=== PATIENT | male | born 1995 | race Caucasian/White ===

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

== ENCOUNTER 2017-08-24 14:06 | Emergency (ER) | payer OTHER ==
[~2017-08-24] VITALS: Ht 175.3 cm; Wt 68.0 kg
[2017-08-24] MEDS ORDERED: HYDROcodone/APAP 5 MG/325 MG (LORTAB) TAB PO STA (14:10)
--- NOTE | 2017-08-24 14:26 | ED Upper Extremity ---
General Chief Complaint: Upper Extremity Stated Complaint: LEFT HAND FINGERS SMASHED AT WORK Nursing Triage Note: PT STATES SMASHED 2,3,4,5 FINGERS ON L HAND BETWEEN TWO RAILROAD TIES AT WORK Nursing Sepsis Screen: No Definite Risk Source: patient, spouse Exam Limitations: no limitations History of Present Illness Time seen by provider: 14:14 Allergies and Home Medications Allergies Coded Allergies: No Known Drug Allergies (Unverified , 12/17/16) Past Fmqtali-Wdnchg-Dizveg Hx Patient Social History Alcohol Use: Occasionally Uses Number of Drinks Today: AA Alcohol Beverage of Choice: Beer Recreational Drug Use: No Smoking Status: Current Someday Smoker Type Used: Cigarettes Recent Foreign Travel: No Contact w/Someone Who Travel: No Recent Infectious Disease Expo: No Recent Hopitalizations: No Physical Abuse: No Sexual Abuse: No Immunizations Up To Date Tetanus Booster (TDap): Less than 5yrs Seasonal Allergies Seasonal Allergies: Yes Surgeries History of Surgeries: Yes (LT WRIST SURG X2, nasal fx) Respiratory History of Respiratory Disorde: No Cardiovascular History of Cardiac Disorders: No Neurological History of Neurological Disord: No Reproductive System Hx Reproductive Disorders: No Sexually Transmitted Disease: No HIV/AIDS: No Genitourinary History of Genitourinary Disor: No Gastrointestinal History of Gastrointestinal Di: No Musculoskeletal History of Musculoskeletal Dis: No Endocrine History of Endocrine Disorders: No HEENT Loss of Vision: Denies Hearing Impairment: Denies Cancer History of Cancer: No Psychosocial History of Psychiatric Problem: No Suicide Risk Score: 0 Integumentary History of Skin or Integumenta: No Blood Transfusions History of Blood Disorders: No Adverse Reaction to a Blood Tr: No (N/A) Family Medical History Significant Family History: No Pertinent Family Hx, Seizures Physical Exam Vital Signs Vital Sign - Last 12Hours 08/24/17 14:10 Temp 97.5 Pulse 56 Resp 18 B/P (MAP) 123/75 (91) Pulse Ox 100 Capillary Refill : Less Than 3 Seconds Nail Trepanation : Nail Trepanation Location: left ring finger Method of Drainage: nail cauterized Sterile Dressing Applied: Yes Finger Splint: Yes Progress/Results/Core Measures Results/Orders My Orders Orders - NASH QUISPE PA Hand, Left, 3 Views (08/24/17 14:10) Hydrocodone/Apap 5/325 Tablet (Lortab 5 (08/24/17 14:10) Vital Signs/I&O Vital Sign - Last 12Hours 08/24/17 14:10 Temp 97.5 Pulse 56 Resp 18 B/P (MAP) 123/75 (91) Pulse Ox 100 Blood Pressure Mean: 91 Diagnostic Imaging Diagonstic Imaging: Xray Plain Films/CT/US/NM/MRI: hand Comments HAND, LEFT, 3 VIEWS Three views of the left hand. INDICATION: Injury. FINDINGS: There are fractures in the distal phalanges of the third and fourth fingers. The fracture in the third finger distal phalanx is a transverse fracture through the shaft. The fracture through the distal phalanx of the ring finger is an oblique fracture at the junction between the shaft and the distal tuft. There is no significant displacement. No subluxation or dislocation. No radiopaque foreign body. There is a probably old fracture of the ulnar styloid process which appears to have corticated margins. IMPRESSION: 1. Nondisplaced fractures in the distal phalanges of the third and fourth fingers. 2. Probably old fracture of the ulnar styloid process. Dictated on workstation # [id number] Reviewed: Reviewed by Me (radiology report reviewed by me) Departure Impression Impression: Primary Impression: Closed fracture of phalanx of left middle finger Qualified Codes: S62.663A - Nondisplaced fracture of distal phalanx of left middle finger, initial encounter for closed fracture Additional Impressions: Closed fracture of phalanx of left ring finger Qualified Codes: S62.665A - Nondisplaced fracture of distal phalanx of left ring finger, initial encounter for closed fracture Subungual hematoma of finger of left hand Qualified Codes: S60.10XA - Contusion of unspecified finger with damage to nail, initial encounter Contusion of left little finger Qualified Codes: S60.052A - Contusion of left little finger without damage to nail, initial encounter Contusion of left index finger Qualified Codes: S60.022A - Contusion of left index finger without damage to nail, initial encounter Disposition: 01 HOME, SELF-CARE Condition: Improved Departure-Patient Inst. Decision time for Depature: 15:09 Referrals: KATHRIN SARGENT MD (PCP/Family) Primary Care Physician ZULEYKA ZALDIVAR DO Patient Instructions: Contusion (DC), Finger Fracture (DC) Add. Discharge Instructions: All discharge instructions reviewed with patient and/or family. Voiced understanding. Medications as instructed. No ibuprofen or Aleve. Finger splint and sling as instructed. Ice pack for 20 minute intervals as needed for 2-3 days. Elevate the left hand on pillows. Shower with antibacterial soap and cover the left ring finger nail with a Band- Aid. Follow-up with Dr. Zaldivar at [facility] for recheck within the next 7 days , call today for appointment time. Return to the emergency department for worsened symptoms or any other concerns. Scripts Hydrocodone/Acetaminophen (Hydrocodon -Acetaminophen 5-325) 1 Each Tablet 1 EACH PO Q4H Y for PAIN, #20 TAB 0 Refills Prov: NASH QUISPE 08/24/17 NASH QUISPE Aug 24, 2017 14:26
--- NOTE | 2017-08-24 15:06 | Diagnostic Imaging Report ---
Three views of the left hand. INDICATION: Injury. FINDINGS: There are fractures in the distal phalanges of the third and fourth fingers. The fracture in the third finger distal phalanx is a transverse fracture through the shaft. The fracture through the distal phalanx of the ring finger is an oblique fracture at the junction between the shaft and the distal tuft. There is no significant displacement. No subluxation or dislocation. No radiopaque foreign body. There is a probably old fracture of the ulnar styloid process which appears to have corticated margins. IMPRESSION: 1. Nondisplaced fractures in the distal phalanges of the third and fourth fingers. 2. Probably old fracture of the ulnar styloid process. Dictated by: Dictated on workstation # [id number]
[2017-08-24] MEDS ORDERED: HYDR-3812 PO (15:10)
[2017-08-24 15:33] VITALS: BP 120/72
== END 2017-08-24 15:33 | disposition home or self-care (01) ==
LOC: EDUNIT# 14:06 → ER 14:09
DX: S62.663A Nondisplaced fracture of distal phalanx of left middle finger, initial encounter for closed fracture (principal); S62.665A Nondisplaced fracture of distal phalanx of left ring finger, initial encounter for closed fracture; F17.210 Nicotine dependence, cigarettes, uncomplicated; W23.1XXA Caught, crushed, jammed, or pinched between stationary objects, initial encounter; Y92.85 Railroad track as the place of occurrence of the external cause
CPT/HCPCS: 73130; 99283

== ENCOUNTER 2018-06-17 08:45 | Emergency (ER) | payer OTHER ==
[~2018-06-17] VITALS: Ht 172.7 cm; Wt 63.5 kg
[~2018-06-17 08:45] MED LIST changes: +ACHD5005 PO; +HYDR-34 PO; -HYDR-3812 PO; -HYDR-3816 PO
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
[2018-06-17] MEDS ORDERED: LIDOCAINE 1% INJ 20 ML 20 ML VIAL ONE (10:29)
[2018-06-17] MEDS ORDERED: CEPH-507 PO (10:51)
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
[2018-06-17 10:56] VITALS: BP 108/88
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
== END 2018-06-17 10:56 | disposition home or self-care (01) ==
LOC: EDUNIT# 08:45 → ER 08:46
DX: S00.05XA Superficial foreign body of scalp, initial encounter (principal); W34.010A Accidental discharge of airgun, initial encounter
CPT/HCPCS: 70250

== ENCOUNTER 2018-06-23 09:29 | Emergency (ER) | payer OTHER ==
[~2018-06-23] VITALS: Ht 172.7 cm; Wt 63.7 kg
[~2018-06-23 09:29] MED LIST changes: +CEPH-507 PO
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
[2018-06-23 09:44] VITALS: BP 103/56
== END 2018-06-23 09:44 | disposition home or self-care (01) ==
LOC: EDUNIT# 09:29 → ER 09:30
DX: S01.01XD Laceration without foreign body of scalp, subsequent encounter (principal); X58.XXXD Exposure to other specified factors, subsequent encounter

== ENCOUNTER → 2019-04-03 | Outpatient (CLI) | payer OTHER ==
[~2019-04-03] MED LIST changes: +OXYM-51; -OXYM30SP11
--- NOTE | 2019-04-03 17:53 | Diagnostic Imaging Report ---
INDICATION: Injury to left ankle. TIME OF EXAM: 2:07 p.m. TECHNIQUE: Three views of the left ankle were obtained. FINDINGS: A lateral view does show an osseous density along the anterior aspect of the ankle joint. This is suspect for a fracture of the anterior aspect of the distal tibia. This is not seen on the AP or oblique views. The distal fibula is intact. Ankle mortise is well maintained. Talar dome is smooth. IMPRESSION: Findings suspect for a fracture of the distal tibia anteriorly. CT of the ankle would be useful for further evaluation. Dictated by: Dictated on workstation # [id number]
== END ==
LOC: RAD 13:54
PROVIDERS: ATTEND Family Medicine
DX: S99.912A Unspecified injury of left ankle, initial encounter (principal)
CPT/HCPCS: 73610

== ENCOUNTER 2019-06-04 02:33 | Emergency (ER) | payer OTHER ==
[~2019-06-04] VITALS: Ht 173 cm; Wt 64.0 kg
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
[2019-06-04] MEDS ORDERED: DEXT20TA8 (03:00)
[2019-06-04] MEDS ORDERED: LACTATED RINGERS 1,000 ML IV ONE (03:13)
[2019-06-04] MEDS ORDERED: fentaNYL INJECTION 100 MCG/2 ML AMP IVP ONE ×2 (03:15→04:30)
[2019-06-04] MEDS ORDERED: ONDANSETRON 4 MG/2 ML (SDV) Z0FRAN IVP ONE (03:15)
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
[2019-06-04 03:33] LABS: BASOPHILS % (AUTO) 1 % (0-10); EOSINOPHILS # (AUTO) 0.1 10^3/uL (0.0-0.3); EOSINOPHILS % (AUTO) 1 % (0-10); HEMATOCRIT 40 % (40-54); HEMOGLOBIN 14.3 G/DL (13.3-17.7); LYMPHOCYTES # (AUTO) 1.6 X 10^3 (1.0-4.0); LYMPHOCYTES % (AUTO) 25 % (12-44); MEAN CORPUSCULAR HEMOGLOBIN 30 PG (25-34); MEAN CORPUSCULAR HGB CONC 36 G/DL (32-36); MEAN CORPUSCULAR VOLUME 83 FL (80-99); MEAN PLATELET VOLUME 8.9 FL (7.4-10.4); MONOCYTES # (AUTO) 0.3 X 10^3 (0.0-1.0); MONOCYTES % (AUTO) 5 % (0-12); NEUTROPHILS # (AUTO) 4.5 X 10^3 (1.8-7.8); NEUTROPHILS % (AUTO) 69 % (42-75); PLATELET COUNT 233 10^3/uL (130-400); RED CELL DISTRIBUTION WIDTH 12.2 % (10.0-14.5); WHITE BLOOD COUNT 6.6 10^3/uL (4.3-11.0)
[2019-06-04 03:51] LABS: ALANINE AMINOTRANSFERASE 15 U/L (0-55); ALBUMIN 4.3 GM/DL (3.2-4.5); ALKALINE PHOSPHATASE 84 U/L (40-136); BILIRUBIN,TOTAL 0.4 MG/DL (0.1-1.0); BUN/CREATININE RATIO 11; CALCIUM 8.7 MG/DL (8.5-10.1); CARBON DIOXIDE 22 MMOL/L (21-32); CHLORIDE 107 MMOL/L (98-107); CREATININE SERUM 1.02 MG/DL (0.60-1.30); GFR ESTIMATED > 60; GLUCOSE 94 MG/DL (70-105); POTASSIUM 3.7 MMOL/L (3.6-5.0); SODIUM 140 MMOL/L (135-145)
[2019-06-04 04:29] VITALS: BP 117/73
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
[2019-06-04] MEDS ORDERED: ceFAZolin INJECTION 1,000 MG in WATER (STERILE) FOR INJECTION 10 ML IV ONE (04:45)
--- NOTE | 2019-06-04 05:07 | NUR ---
pt's father at bedside speaking with erp.
--- NOTE | 2019-06-04 05:08 | NUR ---
[facility] here for patient transfer.
[2019-06-04 05:09] VITALS: BP 125/74
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
== END 2019-06-04 05:25 | disposition short-term general hospital (02) ==
LOC: EDUNIT# 02:33 → ER 02:36
DX: S02.609B Fracture of mandible, unspecified, initial encounter for open fracture (principal); T79.7XXA Traumatic subcutaneous emphysema, initial encounter; F90.9 Attention-deficit hyperactivity disorder, unspecified type; F17.210 Nicotine dependence, cigarettes, uncomplicated; R40.2132 Coma scale, eyes open, to sound, at arrival to emergency department; R40.2252 Coma scale, best verbal response, oriented, at arrival to emergency department; R40.2362 Coma scale, best motor response, obeys commands, at arrival to emergency department; Y04.0XXA Assault by unarmed brawl or fight, initial encounter
CPT/HCPCS: 36415; 70450; 70486; 72125; 80053; 80320; 85025

== ENCOUNTER 2020-12-31 14:32 | Emergency (ER) | payer OTHER ==
[~2020-12-31] VITALS: Ht 172 cm; Wt 64.0 kg
[~2020-12-31 14:32] MED LIST changes: +ACHYD1T PO; -CLIN150C17 PO; +CLIN150C18 PO; +DEXT20TA8; -HYDR-3820 PO
--- NOTE | 2020-12-31 14:52 | ED General ---
General Stated Complaint: FEVER,RLQ PAIN Source of Information: Patient Exam Limitations: No Limitations History of Present Illness Date Seen by Provider: Dec 31, 2020 Time Seen by Provider: 14:50 Initial Comments Sent to ER from [facility] with reports of concern for appendicitis. He has some abdominal pain and fever up to 101 on Wednesday. However the abdominal pain has been ongoing for couple of months intermittently. He has also had a cough and shortness of breath for the past few days. He was tested for Covid a week ago at [facility] and was negative. Timing/Duration: 1 Week, Getting Worse, Intermittent Severity: Moderate Associated Systoms: Cough, Shortness of Air Allergies and Home Medications Allergies Coded Allergies: No Known Drug Allergies (Unverified , 12/17/16) Patient Home Medication List Home Medication List Reviewed: Yes Review of Systems Review of Systems Constitutional: see HPI, chills, fever EENTM: see HPI Respiratory: see HPI, cough, short of breath Gastrointestinal: abdominal pain, diarrhea Genitourinary: no symptoms reported Musculoskeletal: no symptoms reported Skin: no symptoms reported Psychiatric/Neurological: No Symptoms Reported Hematologic/Lymphatic: No Symptoms Reported Immunological/Allergic: no symptoms reported Past Jqulgne-Cgkyic-Sapgfn Hx Patient Social History Alcohol Beverage of Choice: Beer Type Used: Cigarettes 2nd Hand Smoke Exposure: Yes Recent Hopitalizations: No Immunizations Up To Date Tetanus Booster (TDap): Unknown Seasonal Allergies Seasonal Allergies: Yes Past Medical History Surgeries: Yes (LT WRIST SURG X2, nasal fx, leg fx) Orthopedic Respiratory: No Cardiac: No Neurological: No Reproductive Disorders: No Sexually Transmitted Disease: No HIV/AIDS: No Genitourinary: No Gastrointestinal: No Musculoskeletal: No Endocrine: No HEENT: No Loss of Vision: Denies Hearing Impairment: Denies Cancer: No Psychosocial: Yes ADD/ADHD Integumentary: No Blood Disorders: No Adverse Reaction/Blood Tranf: No (N/A) Family Medical History No Pertinent Family Hx, Seizures Physical Exam Vital Signs Capillary Refill : Height, Weight, BMI Height: 5'8.00" Weight: 140lbs. 6.0oz. 63.728495qe; 21.00 BMI Method:Stated General Appearance: No Apparent Distress, WD/WN Eyes: Bilateral Eye Normal Inspection, Bilateral Eye PERRL, Bilateral Eye EOMI Neck: Full Range of Motion, Normal Inspection Respiratory: Lungs Clear, Normal Breath Sounds, No Accessory Muscle Use, No Respiratory Distress Cardiovascular: Regular Rate, Rhythm, Normal Peripheral Pulses Gastrointestinal: Normal Bowel Sounds, Non Tender Neurologic/Psychiatric: Alert, Oriented x3 Skin: Normal Color, Warm/Dry Progress/Results/Core Measures Suspected Sepsis SIRS Temperature: Pulse: Respiratory Rate: Laboratory Tests 12/31/20 14:47: White Blood Count 7.9 Blood Pressure / Mean: Laboratory Tests 12/31/20 14:47: Creatinine 1.21, Platelet Count 213, Total Bilirubin 0.7 Results/Orders Lab Results Laboratory Tests Test 12/31/20 14:47 12/31/20 14:51 12/31/20 14:57 Range/Units White Blood Count 7.9 4.3-11.0 10^3/uL Red Blood Count 5.39 4.30-5.52 10^6/uL Hemoglobin 15.8 13.3-17.7 g/dL Hematocrit 46 40-54 % Mean Corpuscular Volume 85 80-99 fL Mean Corpuscular Hemoglobin 29 25-34 pg Mean Corpuscular Hemoglobin Concent 35 32-36 g/dL Red Cell Distribution Width 11.7 10.0-14.5 % Platelet Count 213 130-400 10^3/uL Mean Platelet Volume 9.4 9.0-12.2 fL Immature Granulocyte % (Auto) 0 % Neutrophils (%) (Auto) 73 42-75 % Lymphocytes (%) (Auto) 17 12-44 % Monocytes (%) (Auto) 8 0-12 % Eosinophils (%) (Auto) 1 0-10 % Basophils (%) (Auto) 0 0-10 % Neutrophils # (Auto) 5.7 1.8-7.8 10^3/uL Lymphocytes # (Auto) 1.3 1.0-4.0 10^3/uL Monocytes # (Auto) 0.7 0.0-1.0 10^3/uL Eosinophils # (Auto) 0.1 0.0-0.3 10^3/uL Basophils # (Auto) 0.0 0.0-0.1 10^3/uL Immature Granulocyte # (Auto) 0.0 0.0-0.1 10^3/uL Sodium Level 139 135-145 MMOL/L Potassium Level 4.3 3.6-5.0 MMOL/L Chloride Level 101 98-107 MMOL/L Carbon Dioxide Level 28 21-32 MMOL/L Anion Gap 10 5-14 MMOL/L Blood Urea Nitrogen 11 7-18 MG/DL Creatinine 1.21 0.60-1.30 MG/DL Estimat Glomerular Filtration Rate > 60 BUN/Creatinine Ratio 9 Glucose Level 89 70-105 MG/DL Calcium Level 9.3 8.5-10.1 MG/DL Corrected Calcium 9.0 8.5-10.1 MG/DL Total Bilirubin 0.7 0.1-1.0 MG/DL Aspartate Amino Transf (AST/SGOT) 25 5-34 U/L Alanine Aminotransferase (ALT/SGPT) 47 0-55 U/L Alkaline Phosphatase 68 40-136 U/L C-Reactive Protein High Sensitivity 0.90 H 0.00-0.50 MG/DL Total Protein 7.4 6.4-8.2 GM/DL Albumin 4.4 3.2-4.5 GM/DL Urine Color YELLOW Urine Clarity CLEAR Urine pH 6.5 5-9 Urine Specific [place] 1.025 H 1.016-1.022 Urine Protein NEGATIVE NEGATIVE Urine Glucose (UA) NEGATIVE NEGATIVE Urine Ketones NEGATIVE NEGATIVE Urine Nitrite NEGATIVE NEGATIVE Urine Bilirubin NEGATIVE NEGATIVE Urine Urobilinogen 0.2 < = 1.0 MG/DL Urine Leukocyte Esterase NEGATIVE NEGATIVE Urine RBC (Auto) NEGATIVE NEGATIVE Urine RBC NONE /HPF Urine WBC NONE /HPF Urine Squamous Epithelial Cells RARE /HPF Urine Crystals NONE /LPF Urine Bacteria NEGATIVE /HPF Urine Casts NONE /LPF Urine Mucus NEGATIVE /LPF Urine Culture Indicated NO Micro Results Microbiology 12/31/20 Influenza Types A,B Antigen (RITA) - Final, Complete My Orders Orders - RADHA YOU APRN Influenza A And B Antigens (12/31/20 14:48) Covid 19 Inhouse Test (12/31/20 14:48) Cbc With Automated Diff (12/31/20 14:48) Hs C Reactive Protein (12/31/20 14:48) Comprehensive Metabolic Panel (12/31/20 14:48) Ua Culture If Indicated (12/31/20 14:48) Ed Iv/Invasive Line Start (12/31/20 14:48) Vital Signs/I&O Capillary Refill : Departure Impression Primary Impression: Viral syndrome Disposition: 01 HOME, SELF-CARE Condition: Stable Departure-Patient Inst. Decision time for Depature: 15:31 Referrals: KATHRIN SARGENT MD (PCP/Family) Primary Care Physician Patient Instructions: Viral Syndrome (DC) Add. Discharge Instructions: 1. Return to ER for any concerns 2. Tylenol Motrin for any fevers. Follow-up with your doctor next week. Work/School Note: Work Release Form Date Seen in the Emergency Department: Dec 31, 2020 Return to Work: Jan 01, 2021 RADHA YOU APRN Dec 31, 2020 14:52
[2020-12-31 14:56] LABS: BILIRUBIN,URINE NEGATIVE (NEGATIVE); CLARITY,URINE CLEAR; COLOR,URINE YELLOW; GLUCOSE, URINE (UA) NEGATIVE (NEGATIVE); KETONES,URINE NEGATIVE (NEGATIVE); LEUKOCYTE ESTERASE ,URINE NEGATIVE (NEGATIVE); NITRITE,URINE NEGATIVE (NEGATIVE); PH,URINE 6.5 (5-9); PROTEIN,URINE NEGATIVE (NEGATIVE)
[2020-12-31 14:57] LABS: BASOPHILS % (AUTO) 0 % (0-10); EOSINOPHILS # (AUTO) 0.1 10^3/uL (0.0-0.3); EOSINOPHILS % (AUTO) 1 % (0-10); HEMATOCRIT 46 % (40-54); HEMOGLOBIN 15.8 g/dL (13.3-17.7); LYMPHOCYTES # (AUTO) 1.3 10^3/uL (1.0-4.0); LYMPHOCYTES % (AUTO) 17 % (12-44); MEAN CORPUSCULAR HEMOGLOBIN 29 pg (25-34); MEAN CORPUSCULAR HGB CONC 35 g/dL (32-36); MEAN CORPUSCULAR VOLUME 85 fL (80-99); MEAN PLATELET VOLUME 9.4 fL (9.0-12.2); MONOCYTES # (AUTO) 0.7 10^3/uL (0.0-1.0); MONOCYTES % (AUTO) 8 % (0-12); NEUTROPHILS # (AUTO) 5.7 10^3/uL (1.8-7.8); NEUTROPHILS % (AUTO) 73 % (42-75); PLATELET COUNT 213 10^3/uL (130-400); WHITE BLOOD COUNT 7.9 10^3/uL (4.3-11.0)
[2020-12-31 15:04] LABS: BACTERIA,URINE NEGATIVE /HPF; SQUAMOUS EPITHELIAL CELL,UR RARE /HPF
[2020-12-31 15:15] LABS: ALBUMIN 4.4 GM/DL (3.2-4.5); CHLORIDE 101 MMOL/L (98-107); POTASSIUM 4.3 MMOL/L (3.6-5.0); SODIUM 139 MMOL/L (135-145)
[2020-12-31 15:16] LABS: CALCIUM 9.3 MG/DL (8.5-10.1)
[2020-12-31 15:17] LABS: GLUCOSE 89 MG/DL (70-105); TOTAL PROTEIN 7.4 GM/DL (6.4-8.2)
[2020-12-31 15:18] LABS: CARBON DIOXIDE 28 MMOL/L (21-32)
[2020-12-31 15:19] LABS: BILIRUBIN,TOTAL 0.7 MG/DL (0.1-1.0)
[2020-12-31 15:21] LABS: ALKALINE PHOSPHATASE 68 U/L (40-136); CREATININE SERUM 1.21 MG/DL (0.60-1.30); GFR ESTIMATED > 60
[2020-12-31 15:22] LABS: BUN/CREATININE RATIO 9
[2020-12-31 15:24] LABS: ALANINE AMINOTRANSFERASE 47 U/L (0-55)
[2020-12-31 15:40] VITALS: BP 118/82
== END 2020-12-31 15:40 | disposition home or self-care (01) ==
LOC: EDUNIT# 14:32 → ER 14:35
DX: B34.9 Viral infection, unspecified (principal); Z20.822 Contact with and (suspected) exposure to COVID-19; Z77.22 Contact with and (suspected) exposure to environmental tobacco smoke (acute) (chronic)
CPT/HCPCS: 80053; 81000; 85025; 86141; 87804; 99284; U0002; 36415; 87635

== ENCOUNTER 2023-02-11 07:58 | Emergency (ER) | payer OTHER ==
[~2023-02-11] VITALS: Ht 175 cm; Wt 78.0 kg
[~2023-02-11 07:58] MED LIST changes: -CLIN150C18 PO; +CLIN150C20 PO
[2023-02-11] MEDS ORDERED: ONDA8TAB13 SL (08:22)
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
[2023-02-11 08:27] VITALS: BP 138/87
== END 2023-02-11 08:27 | disposition home or self-care (01) ==
LOC: EDUNIT# 07:58 → ER FS 08:04
DX: R10.31 Right lower quadrant pain (principal); R10.11 Right upper quadrant pain; R19.7 Diarrhea, unspecified; R11.2 Nausea with vomiting, unspecified
CPT/HCPCS: 99283